=== PATIENT | male | born 1955 | race Caucasian/White ===

== ENCOUNTER 2017-03-13 08:35 | Emergency (ER) | payer BC ==
[~2017-03-13] VITALS: Ht 167.6 cm; Wt 65.8 kg
[2017-03-13] MEDS ORDERED: TOPROL XL50 MG PO (10:07)
== END 2017-03-13 10:20 | disposition short-term general hospital (02) ==
LOC: ER 08:35
DX: I47.1 Supraventricular tachycardia (principal); I10 Essential (primary) hypertension
CPT/HCPCS: G0477; J0153